=== PATIENT | male | born 1985 ===

== ENCOUNTER 2018-07-24 15:19 | Emergency (ER) | payer BC ==
[2018-07-24] MEDS ORDERED: Lidocaine 1% Inj (20ml) ONE (16:12)
[2018-07-24] MEDS ORDERED: Povidone Iodine Topical 10% Sol ONE (16:26)
--- NOTE | 2018-07-24 17:49 | RAD ---
PROCEDURE: Right Hand Radiographs. HISTORY: r/o FB COMPARISON: None. FINDINGS: BONES: Normal. No fracture. JOINTS: Normal. No osteoarthritic changes. SOFT TISSUES: Normal. No visulaized radiopaque/visualized foreign body. OTHER FINDINGS: None. IMPRESSION: Normal right hand radiographs.No visulaized radiopaque/visualized foreign body.
[2018-07-24] MEDS ORDERED: Bacitracin 500 Units/gm Oint Foilpak UD ONE (18:05)
[2018-07-24 19:05] VITALS: BP 122/70; PULSE 76; RESP 18; TEMP 98; O2SAT 100
--- NOTE | 2018-07-25 02:20 | ED PDOC ---
Upper Extremity Pain/Injury Time Seen by Provider: 07/24/18 16:14 Chief Complaint (Nursing): Upper Extremity Problem/Injury History Per: Patient History/Exam Limitations: no limitations Onset/Duration Of Symptoms: Hrs Additional Complaint(s): 32 y/o male with no significant PMH presents to the ED c/o right hand laceration s/p injury 1 hour ago. Pt was carrying a mirror when it shattered and cut the top of his right hand between his 3rd/4th digits. States he is up to date on tetanus immunization. Denies numbness, tingling, lacerations or abrasions elsewhere. Past Medical History Reviewed: Historical Data, Nursing Documentation, Vital Signs Vital Signs: Last Vital Signs Temp 98 F 07/24/18 19:04 Pulse 76 07/24/18 19:04 Resp 18 07/24/18 19:04 BP 122/70 07/24/18 19:04 Pulse Ox 100 07/24/18 19:04 - Family History Family History: States: Unknown Family Hx - Allergies Allergies/Adverse Reactions: Allergies Allergy/AdvReac Type Severity Reaction Status Date / Time No Known Allergies Allergy Verified 07/24/18 16:41 Review of Systems ROS Statement: Except As Marked, All Systems Reviewed And Found Negative Constitutional: Negative for: Fever, Chills Cardiovascular: Negative for: Chest Pain, Palpitations Respiratory: Negative for: Cough, Shortness of Breath Gastrointestinal: Negative for: Nausea, Vomiting, Abdominal Pain Musculoskeletal: Positive for: Hand Pain (right between 3rd/4th finger, over laceration). Negative for: Neck Pain, Shoulder Pain, Arm Pain, Back Pain, Leg Pain, Foot Pain Skin: Positive for: Other (laceration between 3rd/4th finger right hand; no active bleeding). Negative for: Rash Neurological: Negative for: Weakness, Numbness, Confusion, Altered Mental Status, Headache, Dizziness Physical Exam - Reviewed Nursing Documentation Reviewed: Yes Vital Signs Reviewed: Yes - Physical Exam Appears: Positive for: Well, Non-toxic, No Acute Distress Head Exam: Positive for: ATRAUMATIC, NORMAL INSPECTION, NORMOCEPHALIC Skin: Positive for: Normal Color, Warm, DRY Eye Exam: Positive for: EOMI, Normal appearance, PERRL Neck: Positive for: Normal, Painless ROM Cardiovascular/Chest: Positive for: Regular Rate, Rhythm Respiratory: Positive for: CNT, Normal Breath Sounds Pulses-Radial (L): 2+ Pulses-Radial (R): 2+ Extremity: Positive for: Normal ROM, Tenderness (over laceration; right hand), Other (1.5cm vertical linear laceration right hand dorsal surface between digits 3 and 4; small 0.5cm angled shallow laceration dorsal right hand near 3rd digit MCP joint.). Negative for: Deformity, Swelling Neurologic/Psych: Positive for: Alert, Oriented, Gait (normal, steady). Negative for: Motor/Sensory Deficits (full strength. pt able to extend and flex fingers against resistance. No concern for tendon involvement.) - ECG O2 Sat by Pulse Oximetry: 100 Medical Decision Making Medical Decision Making: Initial Plan: * right hand xray * suture repair Pt states tetanus is up to date. Hand XR read by me and Dr. Quintana as no acute fracture, no FB Pt tolerated procedure well without complication, see procedure note Discussed with pt the importance of followup for suture removal. Pt stable for discharge home. Impression: Laceration, right hand Plan: * ibuprofen/tylenol for pain * return in 10-14 days for suture removal * wound care * hand followup as needed * return for new/worsening symptoms Procedures - Time-Out Type of Procedure: wound repair Site of Procedure: right hand Correct Patient: Yes Correct Procedure: Yes Physician Name: Remington Quintana RN Name: Loulou MDEINA/Tech: Brianna Rdz - Laceration/Wound Repair Right Hand Wound Length (cm): 1.5 (secondary 0.5 cm angled laceration) Wound's Depth, Shape: superficial Wound Explored: no foreign body removed Irrigated w/ Saline (ccs): 20 Betadine Prep?: Yes Anesthesia: 1% Lidocaine Volume Anesthetic (ccs): 2 Wound Repaired With: Sutures Suture Size/Type: 5:0 Number of Sutures: 4 Layer Closure?: No Wound Complexity: Simple Sterile Dressing Applied?: Yes Splint Applied?: No Sling Applied?: No Progress: Wound irrigated with 20cc normal saline, area around wound cleaned Betadine applied Local anesthesia with 1% lidocaine; 2cc Sterile procedure observed Repaired 1.5cm linear laceration right hand between 3rd and 4th digits with three 5-0 nylon sutures Repaired 0.5cm angled laceration medial to 3rd MCP joint with one 5-0 nylon suture Wound dressed and bacitracin applied Pt tolerated well without any complications Disposition - Clinical Impression Clinical Impression: Laceration - Disposition Referrals: Levon Mackey MD [Medical Doctor] - Disposition: Routine/Home Disposition Time: 17:30 Condition: IMPROVED Additional Instructions: Followup in 10-14 days for suture removal Keep wound clean, dry, covered; no soaking Take ibuprofen as needed for pain Followup with primary doctor within 2 days Return for new or worsening symptoms, including signs of infection (redness, tenderness, warmth, drainage) Forms: [email or web address] ([place]ian), [facility] ED School/Work Excuse
== END 2018-07-24 19:04 | disposition home or self-care (01) ==
LOC: H.ER 15:19
DX: S61.411A Laceration without foreign body of right hand, initial encounter (principal); W25.XXXA Contact with sharp glass, initial encounter; Y92.89 Other specified places as the place of occurrence of the external cause